=== PATIENT | female | born 1955 | race Caucasian/White ===

== ENCOUNTER → 2020-11-26 10:24 | Outpatient (BNVA) | payer MEDICARE, SELFPAY | PROVIDERS: PCP Registered Nurse; Visit Provider Registered Nurse | DX: I10 Essential (primary) hypertension (principal); F41.9 Anxiety disorder, unspecified; E78.5 Hyperlipidemia, unspecified | CPT/HCPCS: 80053; 80061; 81000; 85025 ==

== ENCOUNTER → 2021-02-26 14:53 | Outpatient (BNVA) | payer MEDICARE, SELFPAY | PROVIDERS: PCP Registered Nurse; Visit Provider Registered Nurse | DX: F12.90 Cannabis use, unspecified, uncomplicated (principal); Z91.14 Patient's other noncompliance with medication regimen; M62.838 Other muscle spasm; R05 Cough | CPT/HCPCS: 80307 ==

== ENCOUNTER 2023-03-31 17:18 | Inpatient (IN) | payer MEDICARE, SELFPAY ==
[2023-03-31 17:20] VITALS: BP 120/80; PULSE 89; RESP 18; TEMP 37; O2SAT 92; BMI 22.8
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
[2023-03-31 18:32] LABS: Basophils % 0.4 %; Eosinophils # 0.1 10^3/uL (0.0-0.8); Hematocrit 34.8 % (36-47); Lymphocytes # 1.8 10^3/uL (0.8-4.8); Lymphocytes % 25.4 %; Mean Corpuscular HGB Conc 33.9 g/dL (30-55); Mean Corpuscular Hemoglobin 31.3 pg (27-33); Mean Corpuscular Volume 92.3 fl (85-98); Mean Platelet Volume 9.3 fL (7.4-10.4); Monocytes # 0.4 10^3/uL (0.2-0.9); Monocytes % 6.3 %; Neutrophils # 4.69 10^3/uL (1.8-7.7); Neutrophils % 66.8 %; Nucleated Red Blood Cells % 0 %; Platelet Count 230 10^3/cmm (157-399); Red Blood Count 3.77 10^6/uL (3.85-5.65); Red Cell Distribution Width 13.4 % (12.1-15.1); White Blood Count 7.02 10^3/uL (3.29-11.43)
[2023-03-31] MEDS: multivitamin therapeutic Tablet 1 TAB PO (18:33)
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
[2023-03-31 20:05] LABS: Acetaminophen < 5.0 ug/mL (10-30); Alanine Aminotransferase 15 U/L (0-33); Albumin Level 4.1 g/dL (3.5-5.2); Alkaline Phosphatase 61 U/L (35-105); Anion Gap 17.5 (5-19); Aspartate Amino Transferase 29 U/L (0-32); Blood Urea Nitrogen 6 mg/dL (8-23); Calcium 8.4 mg/dL (8.5-10.5); Carbon Dioxide 23 mmol/L (22-29); Chloride 90 mmol/L (98-107); Globulin 2.7 g/dL (1.3-4.6); Glomerular Filtration Rate 123.1 mL/min (90-130); Glucose 85 mg/dL (65-115); Osmolality Calculated 261 mOsm/kg (285-295); Potassium 3.5 mmol/L (3.5-5.1); Salicylate 6.2 mg/dL (3-10); Sodium 127 mmol/L (136-145); Total Bilirubin 0.2 mg/dL (0.15-1.2); Total Protein 6.8 g/dL (6.6-8.7)
[2023-03-31 20:06] LABS: Alcohol Level 305 mg/dL (0-10)
[2023-03-31] MEDS: sodium chloride 0.9% 1,000 ML 999 ML IV ×2 (21:26→21:51)
[2023-03-31 21:30] VITALS: BP 139/85; PULSE 102; RESP 16; O2SAT 96
--- NOTE | 2023-03-31 21:35 | PC.NURSE ---
pts called at this time and wanted to speak with his . this nurse asked the pt if she wanted to speak with him or if she wanted me to tell him any info. the pt denied wanting us to provide him with any info. this nurse informed the pts (Paulino) that she did not want him to have any info at this time. Paulino proceeded to tell me that he had POA and he could know any info on her. This nurse explained that d/t the fact we didn't have the POA paperwork and also the fact that the pt was not incapacitated she was still able to make decisions. This nurse did educate the pts on the need to get the POA paperwork on file here at the hospital. The was not very happy with our conversation and abruptly hung up.
[2023-03-31 22:20] VITALS: BP 145/96; PULSE 97; RESP 18; TEMP 36.5; O2SAT 100
[2023-03-31 22:26] LABS: Alcohol Level 239 mg/dL (0-10); Sodium 133 mmol/L (136-145)
[2023-03-31 22:36] VITALS: PULSE 100; RESP 16; O2SAT 98
[2023-03-31 22:42] LABS: Amphetamines Screen Urine Negative (Negative); Barbiturates Screen Urine Negative (Negative); Benzodiazepines Screen Urine Negative (Negative); Cocaine Screen Urine Negative (Negative); Opiate Screen Urine Negative (Negative); PCP Screen Urine Negative (Negative); THC Screen Urine Positive (Negative)
[2023-03-31] MEDS: LORazepam 2 mg Tablet PO (23:32)
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
[2023-04-01 06:00] VITALS: BP 166/103; PULSE 106; RESP 16; O2SAT 98
[2023-04-01] MEDS: hyDROXYzine 25 mg Capsule 50 MG PO (07:47)
[2023-04-01] MEDS: BuSPIRONE 10 mg Tablet 15 MG PO ×2 (08:46→14:08)
[2023-04-01] MEDS: lisinopril 20 mg Tablet PO (08:47)
[2023-04-01] MEDS: folic acid 1 mg Tablet PO (08:47)
[2023-04-01] MEDS: pantoprazole DR 40 mg Tablet PO (08:47)
[2023-04-01] MEDS: multivitamin therapeutic Tablet 1 TAB PO (08:47)
[2023-04-01] MEDS: hydroCHLOROthiazide 25 mg Tablet PO (08:47)
[2023-04-01] MEDS: thiamine 100 mg Tablet PO (08:47)
[2023-04-01] MEDS: acetaminophen 325 mg Tablet 650 MG PO (12:25)
[2023-04-01] MEDS: LORazepam 2 mg Tablet PO (12:49)
[2023-04-01] MEDS: nicotine 21 mg Patch 1 PATCH TRANSDERMA (13:54)
[2023-04-01 14:00] VITALS: BP 195/111; PULSE 108; RESP 24; TEMP 36.4; O2SAT 99
[2023-04-01] MEDS: ibuprofen 600 mg Tablet PO (14:08)
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
--- NOTE | 2023-04-01 15:10 | PC.NURSE ---
AMA education This nurse was asked to witness pt wanting to leave AMA. JUAN RAMON Youngblood educated pt on the importance of them staying so we could monitor their blood pressure and make sure they are getting the correct intervention to their problems. Pt is alert and oriented and verbalized understanding of the instructions that have been given to her.
[2023-04-01] MEDS: OLANZapine 5 mg ODT PO (16:10)
[2023-04-01 16:26] VITALS: BP 200/123
[2023-04-01] MEDS: cloNIDine 0.1 mg Tablet 0.2 MG PO (16:26)
--- NOTE | 2023-04-01 17:25 | PC.NURSE ---
MERCHANDISE EXAMINER shared BP of 200/123. Informed Dr Awan and orders written for Clonidine 0.2mg PO and to consult the hospitalist. Dr Hernandez called but patient chose to leave AMA. B/P repeated prior to discharge AMA, 214/130. Spoke to patient's and he adamantly said to send her home in a cab. Patient states she wants to go home. Patient's agreed to pay for transportation home. AMA signed by patient and two nurses. Patient was told the possiblity of , seizures, increased alcohol withdrawal, stroke, cardiac arrest and kidney failure. Patient continued to want to leave. Patient left AMA at 1510
--- NOTE | 2023-04-01 18:00 | P.NPUDS_ITS ---
Diagnoses at Discharge Discharge Diagnosis (1) Alcohol abuse: Status: Acute (2) Depression: Status: Acute (3) Anxiety: Status: Acute Reason for Visit Reason for Visit: SI/ETOH Brief History: History of Present Illness María Ortega is a 67 year old female who reports no previous history of inpatient psychiatric hospitalization who was admitted voluntarily to this psychiatric unit for further evaluation and treatment after she had reported that she had been feeling depressed to law enforcement at the local marijuana store in [place].? Patient had reported yesterday having drank earlier in the morning and states that she had gone into town with her and stated that she had been feeling more down since she had reportedly been without her psychiatric medications for 4 days.? Patient had stated that the absence of her medication had affected her mood over the past few days.? She did not endorse having thoughts of hurting herself or others.? She had reported having consumed alcohol on a daily basis for several years.? She states drinking approximately 6 beers a day for the past 25 years with no reports of adverse consequences physically.? The patient had reported that she has been managing anxiety for several years and states that she has had a previous history of panic attacks as well.? Patient had a blood alcohol level of 305 on admission.? She had also had evidence of hyponatremia.? She appeared to be a poor historian on interview.? She had reported no feelings of hopelessness.? She had requested that she be able to go home.? She had minimized having any history of alcohol withdrawal symptoms.? She had reported a past history of panic attacks.? She had reiterated that she did not wish to be here. She reported no change in appetite.? She reported no change in energy.? She reported no feelings of hopelessness or worthlessness. Inpatient psychiatric history: None reported Outpatient psychiatric history: She reported no outpatient treatment as well stating that she had been followed under the care of Dr. Pena in [facility]. Current medications: Doxepin 50 mg at night, BuSpar 30 mg twice a day, omeprazole 40 mg daily, ProAir inhaler as needed, Klonopin .5 mg 3 times a day per records. Allergies: No known drug allergies Medical history: Hypertension, seasonal allergies Surgical history: History of cataract surgery, history of having broken femur in January 2022 left leg Drug and alcohol history: She had endorsed history of drinking alcohol for greater than 20 years.? She had reported no extended history of abstinence.? She had not endorsed any history of alcohol rehabilitation treatment.? She endorses no other illicit drug use other than occasional marijuana use for anxiety.? She was positive for marijuana on testing.? She is currently not receiving any counseling? and denied any history of drug or alcohol treatment. Family psychiatric history: None reported Social history: Patient was born in [facility] and grew up near [facility].? She reports having graduated high school and attended 3 years of college.? She had reported that she has 1 daughter whom she is estranged from.? She has been 3 times.? She had minimized any history of sexual physical or emotional abuse.? She reports she has been for 3 years.? She denies any history of learning problems.? She reports no history of trauma.? She smokes proximately three quarters of a pack of cigarettes daily for several years. Hospital Course Hospital Course The patient did not endorse suicidal or homicidal ideation. She had appeared significantly intoxicated and appeared to be at a great risk for alcohol withdrawal symptoms. Despite this she had refused to remain here in the hospital and was discharged AGAINST MEDICAL ADVICE. Potential risks including risks of alcohol withdrawal were explained to the patient who was agreeable to leaving the hospital. Involuntary Hold Information 96 Hour Hold: 96 Hour Involuntary Admission: No Mental Status Exam MSE Comments: She is a casually dressed disheveled white female who looks older than her stated age. She was alert and oriented to person place time and situation. Her gait appeared unsteady and slow. There was slight tremor appreciated. Her speech was slightly slurred but otherwise normal volume and rate. Her thought process was linear logical and goal-directed. Her thought content showed no robert dence of active homicidal or suicidal ideation. She did not appear to be responding to internal stimuli. There was no clear evidence of delusional thinking. Her mood was described as okay. Her affect was anxious. Registration was 3 out of 3 and recall after 5 minutes was 1 out of 3. She was able to spell world forwards but failed backwards. Her insight is poor. Her judgment is limited. Her impulse control appeared limited as well. Discharge Data Studies Completed and Pending: Laboratory Results WBC 7.02 10^3/uL (3.2 9-11.43) 03/31/23 18:24 RBC 3.77 10^6/uL (3.8 5-5.65) L 03/31/23 18: Hgb 11.80 g/dL (11.27 -16.99) 03/31/23 18: Hct 34.8 % (36-47) L 03/31/23 18: MCV 92.3 fl (85-98) 03/31/23 18: MCH 31.3 pg (27-33) 03/31/23 18: MCHC 33.9 g/dL (30-55) 03/31/23 18: RDW 13.4 % (12.1-15.1 ) 03/31/23 18: Plt Count 230 10^3/cmm (157 -399) 03/31/23 18 MPV 9.3 fL (7.4-10.4) 03/31/23 18: Neut % (Auto) 66.8 % 03/31/23 18: Lymph % (Auto) 25.4 % 03/31/23 18: [place] % (Auto) 6.3 % 03/31/23 18: Eos % (Auto) 1.0 % 03/31/23 18: Baso % (Auto) 0.4 % 03/31/23 Neut # (Auto) 4.69 10^3/uL (1.8 -7.7) 03/31/23 18: Lymph # (Auto) 1.8 10^3/uL (0.8- 4.8) 03/31/23 18: [place] # (Auto) 0.4 10^3/uL (0.2- 0.9) 03/31/23 18: Eos # (Auto) 0.1 10^3/uL (0.0- 0.8) 03/31/23 18: Baso # (Auto) 0.0 10^3/uL (0.0- 0.1) 03/31/23 Nucleated RBC % (a uto) 0 % 03/31/23 18 Nucleated RBCs # 0.0 /100WBC 03/31/23 18: Sodium 133 mmol/L (136-1 45) L 03/31/23 21:55 Potassium 3.5 mmol/L (3.5-5 .1) 03/31/23 19:15 Chloride 90 mmol/L (98-107 ) L 03/31/23 19:15 Carbon Dioxide 23 mmol/L (22-29) 03/31/23 19:15 Anion Gap 17.5 (5-19) 03/31/23 19:15 BUN 6 mg/dL (8-23) L 03/31/23 19:15 Creatinine 0.5 mg/dL (0.5-0. 9) 03/31/23 19:15 GFR Calculation 123.1 mL/min (90- 130) 03/31/23 19:15 Glucose 85 mg/dL (65-115) 03/31/23 19:15 Calculated Osmolal ity 261 mOsm/kg (285- 295) L 03/31/23 19:15 Calcium 8.4 mg/dL (8.5-10 .5) L 03/31/23 19:15 Total Bilirubin 0.2 mg/dL (0.15-1 .2) 03/31/23 19:15 AST 29 U/L (0-32) 03/31/23 19:15 ALT 15 U/L (0-33) 03/31/23 19:15 Alkaline Phosphata se 61 U/L (35-105) 03/31/23 19:15 Total Protein 6.8 g/dL (6.6-8.7 ) 03/31/23 19:15 Albumin 4.1 g/dL (3.5-5.2 ) 03/31/23 19:15 Globulin 2.7 g/dL (1.3-4.6 ) 03/31/23 19:15 Salicylates 6.2 mg/dL (3-10) 03/31/23 19:15 Urine Opiates Scre en Negative ng/mL (N egative) 03/31/23 22:23 Acetaminophen < 5.0 ug/mL (10-3 0) L 03/31/23 19:15 Ur Barbiturates Sc reen Negative ng/mL (N egative) 03/31/23 22:23 Ur Phencyclidine S crn Negative ng/mL (N egative) 03/31/23 22:23 Ur Amphetamines Sc reen Negative ng/mL (N egative) 03/31/23 22:23 U Benzodiazepines Scrn Negative ng/mL (N egative) 03/31/23 22:23 Urine Cocaine Scre en Negative ng/mL (N egative) 03/31/23 22:23 U Marijuana (THC) Screen Positive ng/mL (N egative) H 03/31/23 22:23 Ethyl Alcohol 239 mg/dL (0-10) H 03/31/23 21:55 Vitals: Last Vital Signs Temp 97.5 F L 04/01/23 14:00 Pulse 108 H 04/01/23 14:00 Resp 24 H 04/01/23 14:00 BP 214/130 04/01/23 18:19 Pulse Ox 99 04/01/23 14:00 O2 Del Method Room Air 03/31/23 22:36 Discharge Plan Discharge Patient Disposition: Left Against Medical Advice Condition: Stable Prescriptions: No Action buspirone 10 mg tablet 15 mg PO TID omeprazole 40 mg capsule,delayed release(DR/EC) 40 mg PO DAILY clonazepam 0.5 mg tablet 0.5 mg PO TID PRN (Reason: anxiety) lisinopril-hydrochlorothiazide 10-12.5 mg tablet 1 tab PO DAILY Rx Instructions: TAKE 1 TABLET BY MOUTH DAILY ProAir HFA 90 mcg/actuation HFA aerosol inhaler 2 puff inhalation Q4H PRN (Reason: bronchospasm) doxepin 50 mg Capsule 50 mg PO BEDTIME Discharge Orders: Discharge Order (Routine); Ordered 04/01/23 Ordered By: Tan Awan Referrals: [facility] [Outside] Abril Ibrahim FNP [Primary Care Provider] - Discharge Diet: Advance as tolerated Discharge Activity: Resume usual activity Discharge Attestations NPU Time Spent in Discharge Care*: greater than 30 min Specific Discharge Activities: Specific discharge activities: educating patient Coding Level of Care Code Acute Chg FW DC note Diagnoses Alcohol abuse F10.10 Depression F32.9 Anxiety F41.9
[2023-04-01 18:19] VITALS: BP 214/130
== END 2023-04-01 17:10 | disposition left against medical advice (07) | DRG 894 ==
LOC: ER 22:22 → NP 22:34
PROVIDERS: Admitting Provider Psychiatry & Neurology Psychiatry; Emergency Provider Emergency Medicine; PCP Registered Nurse; Visit Provider Psychiatry & Neurology Psychiatry
DX: F10.129 Alcohol abuse with intoxication, unspecified (principal); Y90.8 Blood alcohol level of 240 mg/100 ml or more; F32.A Depression, unspecified; F41.9 Anxiety disorder, unspecified; F17.210 Nicotine dependence, cigarettes, uncomplicated; Z53.29 Procedure and treatment not carried out because of patient's decision for other reasons
CPT/HCPCS: 36415; 80053; 80306; 80307; 84295; 85025; 96372; 97165; 99239; 99285; J3411; J3535; J7030